=== PATIENT | female | born 1995 | race Asian ===

== ENCOUNTER 2022-08-31 07:59 | Emergency (ER) | payer OTHER, SELFPAY ==
[2022-08-31] VITALS (13 sets, daily range): BP systolic 104–117; BP diastolic 64–76; PULSE 57–71; RESP 16–23; TEMP 36.6; O2SAT 93–100; BMI 32.1
--- NOTE | 2022-08-31 08:45 | DI.RAD.S_ITS ---
PROCEDURE: XR CHEST 1V INDICATIONS: chest pain TECHNIQUE: One view of the chest was acquired. COMPARISON: None. FINDINGS: Surgical changes and devices: None. Lungs and pleura: Lungs are clear. No pleural effusions or pneumothorax. Mediastinum: Mediastinal contours appear normal. Heart size is normal. Bones and chest wall: No suspicious bony lesions. Overlying soft tissues appear unremarkable. IMPRESSION: No acute pulmonary process. Dictated by: Kimmy Fernandez M.D. on 08/31/2022 at 9:13 Approved by: Kimmy Fernandez M.D. on 08/31/2022 at 9:13
[2022-08-31 09:03] LABS: Appearance Urine UA CLEAR; Bilirubin Urine UA 1+ (NEGATIVE); Color Urine UA YELLOW; Glucose Urine UA NEGATIVE (Negative); Ketones Urine UA NEGATIVE (NEGATIVE); Leukocyte Esterase Urine UA TRACE (NEGATIVE); Nitrite Urine UA NEGATIVE (Negative); Occult Blood Urine UA NEGATIVE (Negative); Protein Urine UA NEGATIVE (Negative); Specific Gravity Urine UA 1.025 (1.000-1.035)
[2022-08-31 09:03] LABS: Ictotest Urine Negative (Negative)
[2022-08-31 09:10] LABS: RBC Urine None Seen (0-5/HPF)
[2022-08-31 09:11] LABS: Bacteria Urine Few (2-10); Culture Indicated Urine Specimen Cultured; Hyaline Casts Urine 1-5/LPF; Squamous Epithelial Cell Urine 1-5 /HPF (0-5/HPF); WBC Urine 1-5/HPF (0-5/HPF)
--- NOTE | 2022-08-31 09:39 | ED_ITS ---
HPI - Syncope General Chief Complaint: Syncope Stated Complaint: passed out at work Time Seen by Provider: 08/31/22 08:24 Source: patient Mode of arrival: Ambulatory Limitations: no limitations History of Present Illness HPI narrative: The patient passed out at work this morning. She was okay when she awoke. She drove herself to work. She felt she had use the bathroom after arriving to work, that was without issue. Afterwards she sat on a bench because she was not feeling well. Her vision was fading and out. She awoke on the floor. She is no headache, no neck pain, no chest pain, palpitations or dyspnea. She had nausea at the time of the visual changes in syncope. She did not have breakfast this morning. She is no history of events with hyperglycemia. She had a similar episode of nausea with syncope about 2 weeks ago. She is no chronic GI issues, she is no history of cardiovascular or neurologic disease. She is on medications for hypertension. She is compliant with medications. She denies recent illness. She currently has no headache, no visual changes, no ENT complaints. As noted above she is no cardiopulmonary complaints. She has the nausea, without emesis, but mild epigastric discomfort. She is not . She is no urinary complaints. She is no focal weakness or numbness. She denies confusion. She feels well now. She is not been ill. She is had no fever or chills. She takes chlorthalidone 1/2 tablet daily for hypertension. Review of Systems Review of Systems ROS Unobtainable: All systems reviewed & are unremarkable except as noted in HPI and below Patient History Medical History Hypertension Social History Smoking Status: Never smoker Smoking Status: Never smoker alcohol intake frequency: holidays/special occasions only Substance Use Type: does not use Exam Initial Vital Signs Initial Vital Signs: Vital Signs Pulse Rate 61 08/31/22 08:18 Pulse Oximetry 100 08/31/22 08:18 Const General: cooperative, healthy appearing, comfortable, well developed, well groomed and No acute distress Orientation: Orientation (Normal) [facility] Head: normal to inspection Face and sinus: normal facial exam Mouth: oral mucosae normal Throat: posterior oropharynx normal Eyes General: Yes appearance normal, both eyes and all related structures Conjunctivae: conjunctivae normal Sclera: sclerae normal Pupils: PERRL EOM: EOM intact bilaterally Neck Neck: normal visual inspection and No JVD Thyroid: thyroid normal Chest Chest: normal inspection of the chest Resp Effort & Inspection: normal respiratory effort Auscultation: clear to auscultation bilaterally Cardio Rate: regular rate Rhythm: regular rhythm Heart Sounds: S1 normal, S2 normal and no murmurs GI Inspection: normal to inspection Palpation: soft, No no hepatosplenomegaly and No tender Auscultation: normal bowel sounds Back/Spine/Pelvis Back: normal to inspection and No CVA tenderness Skin General: no rashes or lesions noted Neuro General: patient alert, patient awake, patient oriented x3 and no focal motor deficits Cognition: normal cognition Speech: speech normal Motor: muscle tone normal throughout Sensory Exam: no sensory deficits noted Coordination: [id number] test normal Extrem General: normal to inspection, no pedal edema and no calf tenderness Psych Appearance: grossly normal Course Course Course Narrative: Orthostatic blood pressures were evaluated. Her blood pressure is consistently 104-108 systolic. Her blood pressure is low normal. She notes her blood pressure was elevated before going on chlorothiazide. Her blood pressure management and he is to be re-evaluated. Her blood pressure may be related to her syncopal episode. Also, I think her PCM she would prefer additional evaluation for her syncopal episodes. She is discharged here with follow-up with suggested with a PCM. She should talk to her PCM about her blood pressure management immediately. Orders Ordered: ED Orders 08/31/22 08:36 Urinalysis and Microscopic Stat Urine Culture Stat 08/31/22 08:45 XR chest 1V Stat 08/31/22 08:51 Ictotest Urine Stat 08/31/22 09:35 PTT Partial Thromboplastin Maksim Stat Prothrombin Time INR Stat 08/31/22 10:15 Complete Blood Count AUTO DIFF Stat Comprehensive Metabolic Panel Stat Lipase Stat Magnesium Stat Troponin & CK Cardiac Panel Stat Vital Signs Vital signs: Vital Signs - 8 hr 08/31/22 08:21 08/31/22 08:18 08/31/22 08:33 Temperature 97.9 F Pulse Rate 60 61 71 Pulse Rate [Orthostatic Lying] Pulse Rate [Orthostatic Sitting] Pulse Rate [Orthostatic Standing] Respiratory Rate 18 Blood Pressure 116/76 Blood Pressure [Orthostatic Lying] Blood Pressure [Orthostatic Sitting] Blood Pressure [Orthostatic Standing] Pulse Oximetry 100 100 93 Oxygen Delivery Method Room Air 08/31/22 09:44 08/31/22 09:00 08/31/22 09:30 Temperature Pulse Rate 68 69 Pulse Rate [Orthostatic Lying] 65 Pulse Rate [Orthostatic Sitting] 65 Pulse Rate [Orthostatic Standing] 68 Respiratory Rate 18 20 Blood Pressure Blood Pressure [Orthostatic Lying] 107/68 Blood Pressure [Orthostatic Sitting] 106/68 Blood Pressure [Orthostatic Standing] 104/64 Pulse Oximetry 99 100 Oxygen Delivery Method 08/31/22 09:41 08/31/22 09:41 08/31/22 09:42 Temperature Pulse Rate 61 64 Pulse Rate [Orthostatic Lying] Pulse Rate [Orthostatic Sitting] Pulse Rate [Orthostatic Standing] Respiratory Rate 23 16 Blood Pressure 107/68 Blood Pressure [Orthostatic Lying] Blood Pressure [Orthostatic Sitting] Blood Pressure [Orthostatic Standing] Pulse Oximetry 99 99 Oxygen Delivery Method 08/31/22 09:42 08/31/22 09:43 08/31/22 09:43 Temperature Pulse Rate 69 Pulse Rate [Orthostatic Lying] Pulse Rate [Orthostatic Sitting] Pulse Rate [Orthostatic Standing] Respiratory Rate 18 Blood Pressure 106/68 104/64 Blood Pressure [Orthostatic Lying] Blood Pressure [Orthostatic Sitting] Blood Pressure [Orthostatic Standing] Pulse Oximetry 100 Oxygen Delivery Method 08/31/22 10:00 08/31/22 10:30 Temperature Pulse Rate 66 60 Pulse Rate [Orthostatic Lying] Pulse Rate [Orthostatic Sitting] Pulse Rate [Orthostatic Standing] Respiratory Rate 17 18 Blood Pressure Blood Pressure [Orthostatic Lying] Blood Pressure [Orthostatic Sitting] Blood Pressure [Orthostatic Standing] Pulse Oximetry Oxygen Delivery Method MDM - Syncope Lab Data 08/31/22 10:15 08/31/22 10:15 Labs: Lab Results 08/31/22 08/31/22 08/31/22 Range/Units 08:36 08:51 09:35 WBC (4.5-11.0) X10^3/uL RBC (4.0-5.2) X10^6/uL Hgb (12.0-16.0) g/dL Hct (36-46) % MCV (80-100) fL MCH (26-34) PG MCHC (30-36) % RDW (11.6-14.8) % Plt Count (150-400) X10^3/uL Neut % (Auto) (50-75) % Lymph % (Auto) (25-40) % [place] % (Auto) (3-14) % Eos % (Auto) (2-4) % Baso % (Auto) (0-2) % Neut # (Auto) (2396-0845) /uL Lymph # (Auto) (2373-8583) /uL [place] # (Auto) (0-900) /uL Eos # (Auto) (0-450) /uL Baso # (Auto) (0-100) /uL PT 11.8 (10.1-12.7) SECONDS INR 1.0 (0.9-1.3) APTT 22 L (26-36) SECONDS Urine Color Yellow Urine Appearance Clear Urine pH 6.0 (4.5-8.0) Ur Specific [place] 1.025 (1.000-1.035) Urine Protein Negative (Negative) Urine Glucose (UA) Negative (Negative) g/dL Urine Ketones Negative (NEGATIVE) Urine Occult Blood Negative (Negative) Urine Nitrate Negative (Negative) Urine Bilirubin 1+ H (NEGATIVE) Ur Bilirubin Confirm Negative (Negative) Urine Urobilinogen 1.0 (0.2) E.U./dL Ur Leukocyte Esterase Trace H (NEGATIVE) Urine RBC None seen (0-5/HPF) Urine WBC 1-5/hpf (0-5/HPF) Ur Squamous Epith Cells 1-5 /hpf (0-5/HPF) Urine Bacteria Few (2-10) H (None) Hyaline Casts 1-5/lpf (None) Ur Culture Indicated? Specimen cultured 08/31/22 Range/Units 10:15 WBC 9.7 (4.5-11.0) X10^3/uL RBC 4.88 (4.0-5.2) X10^6/uL Hgb 15.0 (12.0-16.0) g/dL Hct 42.4 (36-46) % MCV 86.8 (80-100) fL MCH 30.7 (26-34) PG MCHC 35.4 (30-36) % RDW 12.6 (11.6-14.8) % Plt Count 251 (150-400) X10^3/uL Neut % (Auto) 75.9 H (50-75) % Lymph % (Auto) 16.9 L (25-40) % [place] % (Auto) 3.7 (3-14) % Eos % (Auto) 2.7 (2-4) % Baso % (Auto) 0.8 (0-2) % Neut # (Auto) 7300 H (5020-0859) /uL Lymph # (Auto) 1600 (9874-4080) /uL [place] # (Auto) 400 (0-900) /uL Eos # (Auto) 300 (0-450) /uL Baso # (Auto) 100 (0-100) /uL PT (10.1-12.7) SECONDS INR (0.9-1.3) APTT (26-36) SECONDS Urine Color Urine Appearance Urine pH (4.5-8.0) Ur Specific [place] (1.000-1.035) Urine Protein (Negative) Urine Glucose (UA) (Negative) g/dL Urine Ketones (NEGATIVE) Urine Occult Blood (Negative) Urine Nitrate (Negative) Urine Bilirubin (NEGATIVE) Ur Bilirubin Confirm (Negative) Urine Urobilinogen (0.2) E.U./dL Ur Leukocyte Esterase (NEGATIVE) Urine RBC (0-5/HPF) Urine WBC (0-5/HPF) Ur Squamous Epith Cells (0-5/HPF) Urine Bacteria (None) Hyaline Casts (None) Ur Culture Indicated? Point of Care Testing Test Results Negative Glucose POC 106 Urine Dip Bedside Urine Glucose Negative Bedside Urine Bilirubin + 1 Bedside Urine Ketone - Negative Urine Specific [place] 1.025 Bedside Urine Occult Blood +/- Bedside Urine pH 6.0 Bedside Urine Protein - Negative Bedside Urine Urobilinogen - Negative Bedside Urine Nitrite - Negative Bedside Urine Leukocytes +/- 15 Esterase Imaging Data Chest x-ray: Radiologist's Impression: Normal ECG Data Attestation: I personally reviewed and interpreted this ECG as follows: (monitoring and evaluation advisor reveals normal sinus rhythm without ectopy.) Discharge Plan Departure Patient Disposition: Home Clinical Impression: Syncope Instructions: DI for Syncope in Adults (Fainting) Activity Restrictions/Additional Instructions: Your evaluation is normal, there were no significant findings. Your blood pressure was 10 4-108 systolic, lying, sitting standing. This is not low, but is borderline low. Talk to your PCM about your blood pressure management. Consider stopping your blood pressure medication and re-evaluate the need for the medication. Make a follow-up with your doctor. Additional evaluation for syncope such as an echocardiogram should be considered. Return here as needed. Referrals: Shraddha Kiran PA-C [Primary Care Provider] - Stand Alone Forms: Patient Portal/API
[2022-08-31 09:53] LABS: Prothrombin Time 11.8 SECONDS (10.1-12.7)
[2022-08-31 09:56] LABS: PTT Partial Thromboplastin Tim 22 SECONDS (26-36)
[2022-08-31 10:27] LABS: Add Manual Diff / Slide Review NO; Basophils Absolute Auto 100 /uL (0-100); Basophils Percent Auto 0.8 % (0-2); Eosinophils Absolute Auto 300 /uL (0-450); Eosinophils Percent Auto 2.7 % (2-4); Hematocrit 42.4 % (36-46); Lymphocytes Absolute Auto 1600 /uL (1100-4500); Lymphocytes Percent Auto 16.9 % (25-40); Mean Corpuscular HGB Conc 35.4 % (30-36); Mean Corpuscular Hemoglobin 30.7 PG (26-34); Mean Corpuscular Volume 86.8 fL (80-100); Monocytes Absolute Auto 400 /uL (0-900); Monocytes Percent Auto 3.7 % (3-14); Neutrophils Absolute Auto 7300 /uL (1500-7000); Neutrophils Percent Auto 75.9 % (50-75); Platelet Count 251 X10^3/uL (150-400); Red Blood Cell Count 4.88 X10^6/uL (4.0-5.2); Red Cell Distribution Width 12.6 % (11.6-14.8); White Blood Cell Count 9.7 X10^3/uL (4.5-11.0)
[2022-08-31 10:53] LABS: Alanine Aminotransferase 50 IU/L (<35); Albumin Globulin Ratio 1.3 (1.0-2.8); Alkaline Phosphatase 78 U/L (38-126); Aspartate Aminotransferase 48 IU/L (14-36); BUN Creatinine Ratio 19.6 (6-22); Bilirubin Total 0.7 mg/dL (0.2-1.3); Blood Urea Nitrogen 19 mg/dL (7-17); Calcium 9.6 mg/dL (8.4-10.2); Carbon Dioxide 27 mmol/L (22-32); Chloride 98 mmol/L (98-107); Creatine Kinase 101 U/L (30-135); Estimated Glomerular Filt Rate > 60 mL/min (>60); Globulin 3.9 g/dL (1.7-4.1); Glucose 118 mg/dL (70-100); HEMOLYSIS 27 (0-50); Lipase 203 U/L (23-300); Magnesium 2.4 mg/dL (1.6-2.3); Potassium 3.5 mmol/L (3.4-5.1); Sodium 138 mmol/L (137-145); Total Protein 8.9 g/dL (6.3-8.2)
[2022-08-31 11:02] LABS: Troponin I < 0.012 ng/mL (0.01-0.034)
== END 2022-08-31 11:33 | disposition home or self-care (01) ==
PROVIDERS: Emergency Provider Emergency Medicine; PCP Physician Assistant
DX: R55 Syncope and collapse (principal); R07.9 Chest pain, unspecified; R10.13 Epigastric pain
CPT/HCPCS: 36415; 71045; 80053; 81001; 81003; 81025; 82550; 83690; 83735; 84484; 85025; 85610; 85730; 87077; 87086; 87185; 87186; 99283; 99284